=== PATIENT | male | born 1960 | race Caucasian/White ===

== ENCOUNTER 2025-03-07 11:32 | Emergency (ER) | payer BC, SELFPAY ==
[2025-03-07 11:36] VITALS: BP 116/83
[2025-03-07 12:00] VITALS: BP 114/78
--- NOTE | 2025-03-07 12:37 | ED.GENMED ---
History of Present Illness
General
Chief Complaint: Heart Rate Problem
Source: patient
Exam Limitations: none
Time Seen by Provider: 03/07/25 12:15
Nursing documentation reviewed up to this point in time: agreed with
History of Present Illness
History of Present Illness:
Patient is a 62-year-old male with prediabetes presents to the ER for evaluation. Patient reports for the past 2 weeks he has had intermittent episodes of palpitations heart racing sensation, chest pressure and shortness of breath. This occurred
at 4 AM this morning and woke him up and he had symptoms again while driving here to the ER. He has no cardiac history. He quit smoking in 2021. He denies PE DVT risk factors. No prior history of PE DVT or clotting disorder. He is under a lot
of stress.
Phy Exam
General Physical Exam
General Presentation: no apparent distress
General age: appears stated age
General Skin: warm and dry
General Habitus: normal
General Mental: alert
General Hydration: appears well hydrated
Cardiovascular Exam
Cardiovascular Exam: regular rate/rhythm, no murmur and normal peripheral pulses
Pulmonary Exam
Pulmonary Exam: lungs clear and no respiratory distress
Neurological Exam
Neurological Exam: alert and oriented x3
Musculoskeletal Exam
Musculoskeletal Exam: full ROM
Skin Exam
Skin Exam: normal color and warm/dry
Psychiatric Exam
Psychiatric Exam: normal mood/affect
Course
Orders/Labs/Results
Orders:
Orders
03/07/25 11:39
Electrocardiogram (*1) Urgent
Reason for Study: Vertigo / Dizzy
03/07/25 11:40
EKG- Treatment ONCE
03/07/25 12:45
Cardiac Monitoring- Treatment ONCE
IV Insert/Care/Rem.- Treatment PRN
03/07/25 13:23
Complete Blood Count/With Diff Urgent
Comprehensive Metabolic Panel Urgent
D-Dimer Urgent
TSH Reflex To Free T4 Urgent
Troponin I Urgent
Abnormal Lab Results
03/07/25
13:23
RBC 4.69 L 10^6/uL
(4.70-6.10)
MCH 31.3 H pg
(27.0-31.0)
Monocytes % 9.9 H %
(1.7-9.3)
Chloride 108 H mmol/L
(98-107)
Glucose 149 H mg/dl
(70-99)
03/07/25 13:23
03/07/25 13:23
Vital Signs
Initial and Last Documented VS:
Initial Vital Signs
Temp Pulse Resp BP Pulse Ox
97.6 F 90 18 116/83 98
03/07/25 11:36 03/07/25 11:36 03/07/25 11:36 03/07/25 11:36 03/07/25 11:36
Last Documented Vital Signs
Temp Pulse Resp BP Pulse Ox
97.6 F 64 13 104/74 98
03/07/25 11:36 03/07/25 14:00 03/07/25 14:00 03/07/25 14:00 03/07/25 12:40
MDM/Problems Addressed
Differential Diagnosis Includes:
Not limited to palpitations, arrhythmia, less likely ACS
MDM/Problems Addressed:
As documented patient is a 64-year-old male with complaints of intermittent palpitations sensation shortness of breath pressure for the past 2 weeks. Patient presents awake alert no acute distress nontachycardic here no PE DVT risk factors no
cardiac history. Labs were normal including cardiac troponin and D-dimer. No acute findings on EKG. Patient with PVC on monitor.
Stable however discharge home with outpatient cardiology follow-up
Chronic conditions affecting care:
Anxiety
*Pulse Oximetry
SaO2: 98
Oxygen Mode of Delivery: Room air
Patient hypoxic: no
*EKG
Interpreted by ED Provider?: Yes
Interpretation: normal
Comparison EKG: no comparison EKG present
Heart Rate: 81
Rate: normal
Rhythm: sinus and PVC's
Ischemia: non-specific ST changes
*Critical Care Note
Total Time (30-74mins, 75-104mins- exclusive of procedures): Not Applicable
ED Attending Note
-
Portions of this chart may have been created with voice recognition software.� Occasional wrong word or��sound alike� substitutions may have occurred due to the inherent limitations of voice recognition software.
Discharge Plan
Departure
Patient Disposition: Home (Routine Discharge)
Patient with high blood pressure during this ER visit?: No
Condition: Fair
Covid-19: Not Applicable
Discharge Problem:
Palpitations
Instructions: Palpitations (DC)
Referrals:
Rubi Gaytan PA-C [Family Provider, Family Practice]
Sai Ruiz MD [Active, Cardiology]
Activity Restrictions/Additional Instructions:
As discussed stay well-hydrated. Avoid caffeine alcohol etc. Please call cardiology to make an appointment in extremities for reevaluation. Return if any worsening of symptoms
Interventions
Interventions:
*Risk Screen - Suicide Last Done: 03/07/25 11:39
*General Assessment Last Done: 03/07/25 11:36
*Neglect/Abuse Screening Last Done: 03/07/25 11:36
*Nursing Disposition Last Done: 03/07/25 14:56
ED- Cardiac Assessment Last Done: 03/07/25 12:14
ED- Pulmonary Assessment Last Done: 03/07/25 13:27
Discharge Date and Time
Discharge Date/Time: 03/07/25 14:56
Print Language: GEORGIAN
[2025-03-07 13:00] VITALS: BP 110/70
[2025-03-07 13:17] VITALS: BMI 26.3
[2025-03-07 13:31] LABS: Hematocrit 42.0 % (39.0-52.0); Hemoglobin 14.7 g/dL (13.0-18.0); Mean Corp Hgb Conc. 35.0 g/dL (33.0-37.0); Mean Corpuscular Volume 89.6 fL (80.0-94.0); Nucleated Red Blood Cells % 0 % (-); Platelet Count 164 10^3/uL (130-400); Red Cell Dist. Width 11.9 % (11.5-14.5)
[2025-03-07 13:47] LABS: ALT (SGPT) 20 U/L (0-50); AST (SGOT) 19 U/L (17-59); Albumin 4.1 g/dl (3.5-5.0); Alkaline Phosphatase 50 U/L (38-126); Blood Urea Nitrogen 12 mg/dl (9-20); Calcium 9.0 mg/dl (8.4-10.2); Carbon Dioxide 26 mmol/L (22-30); Chloride 108 mmol/L (98-107); Estimated Creatinine Clearance 111 ml/min; Glucose 149 mg/dl (70-99); Potassium 4.4 mmol/L (3.5-5.1); Sodium 138 mmol/L (135-145); Total Protein 6.4 g/dl (6.3-8.2); eGFR > 60.00
[2025-03-07 13:58] LABS: D-Dimer < 0.27 ug/mlFEU (0.00-0.50)
[2025-03-07 13:59] LABS: Troponin I < 0.012 ng/ml
[2025-03-07 14:00] VITALS: BP 104/74
== END 2025-03-07 14:56 | disposition home or self-care (01) ==
LOC: EMR 11:32
PROVIDERS: Nurse Practitioner; EMERGENCY PHYSICIAN Emergency Medicine; FAMILY PHYSICIAN Physician Assistant
DX: R00.2 Palpitations (principal); F41.9 Anxiety disorder, unspecified; Z87.891 Personal history of nicotine dependence
CPT/HCPCS: 99283; 80053; 84443; 84484; 85025; 85379; 93005